=== PATIENT | male | born 1990 | race Caucasian/White ===

== ENCOUNTER 2018-02-23 08:39 | Emergency (ER) | payer OTHER ==
[~2018-02-23] VITALS: Ht 188 cm; Wt 106.6 kg
[2018-02-23] MEDS ORDERED: LIDOCAINE VISC 2% SOLN 15 ML UDC PO ONE (09:15)
[2018-02-23] MEDS ORDERED: DOXYCYCLINE HY100 MG PO (09:53)
[2018-02-23] MEDS ORDERED: HIBICLENS120 ML TOP (09:55)
== END 2018-02-23 10:02 | disposition home or self-care (01) ==
LOC: FSED 08:39
DX: L73.2 Hidradenitis suppurativa (principal); L02.211 Cutaneous abscess of abdominal wall; F17.210 Nicotine dependence, cigarettes, uncomplicated
CPT/HCPCS: 10060; 99284